=== PATIENT | male | born 1970 | race Caucasian/White ===

== ENCOUNTER 2017-08-26 20:14 | Emergency (ER) | payer OTHER ==
[2017-08-26] MEDS ORDERED: cephALEXin 250 MG CAPSULE PO STA (21:56)
--- NOTE | 2017-08-26 23:09 | Ultrasound Preliminary Report ---
Exam: US DUPLEX EXT VEINS LEFT IMPRESSION: 1. No superficial or deep venous thrombosis. 2. Nonvisualized peroneal vein. Several visualized posterior tibial vein. 3. Soft tissue edema in the left leg. The lateral left knee soft tissues, there is a fluid collection measuring 2.5 x 4.4 x 0.6 cm. No hyperemia noted. Differential includes a seroma, bursitis or absces s. Correlate clinically. Given the ultrasound appearance and absence of hyperemia, fever a seroma or a bursitis. [facility] SITE ID: [id number]
--- NOTE | 2017-08-26 23:11 | ED Physician Documentation ---
PD HPI LOWER EXT INJURY - Stated complaint Stated Complaint: LT LEG EDEMA - Chief complaint Chief Complaint: Ext Problem - History obtained from History obtained from: Patient - History of Present Illness PD HPI LOW EXT INJURY LOCATION: Left, Lower leg Type of injury: Other (Swelling and redness. No traumatic injury.) Timing - onset: How many days ago (5) Timing - duration: Days (5) Timing - details: Still present Associated symptoms: Swelling, Discolored Similar symptoms before: Diagnosis (History of similar episode 3 or 4 years ago that was treated for cellulitis.) - Additional information Additional information: The patient is a 47-year-old diabetic male who presents with redness and swelling of his left lower leg. He first noticed it about 5 days ago after wearing socks that were constricting. He presents now because the redness and swelling has persisted for the past 5 days. He denies fever, cough, or shortness of breath. He reports history of similar episode 3 or 4 years ago which improved after treatment with antibiotics. Review of Systems Constitutional: denies: Fever Nose: denies: Congestion Throat: denies: Sore throat Cardiac: denies: Chest pain / pressure Respiratory: denies: Dyspnea, Cough GI: denies: Abdominal Pain, Nausea, Vomiting : denies: Dysuria Skin: denies: Rash Musculoskeletal: reports: Extremity swelling Neurologic: denies: Headache PD PAST MEDICAL HISTORY - Past Medical History Past Medical History: Yes Cardiovascular: Hypertension Endocrine/Autoimmune: Type 2 diabetes - Past Surgical History Past Surgical History: Yes - Present Medications Home Medications: Ambulatory Orders Medication Instructions Recorded Confirmed Citalopram [CeleXA] 10 mg PO DAILY 08/26/17 Lorazepam [Ativan] 1 mg PO Q6HR PRN 08/26/17 cephALEXin [Cephalexin] 500 mg PO QID #40 tablet 08/26/17 hydroCHLOROthiazide 25 mg PO DAILY 08/26/17 [Hydrochlorothiazide] metFORMIN [Glucophage] 500 mg PO DAILY 08/26/17 - Allergies Allergies/Adverse Reactions: Allergies Allergy/AdvReac Type Severity Reaction Status Date / Time No Known Drug Allergies Allergy Verified 08/26/17 20:26 - Social History Does the pt smoke?: No Smoking Status: Never smoker Does the pt drink ETOH?: No Does the pt have substance abuse?: No - Immunizations Immunizations are current?: No Immunizations: TDAP >10years/unknown, Other immun current PD ED PE NORMAL - Vitals Vital signs reviewed: Yes (hypertensive) - General General: Alert and oriented X 3, Well developed/nourished, Other (obese) - HEENT HEENT: Atraumatic, Moist mucous membranes - Cardiac Cardiac: RRR - Respiratory Respiratory: No respiratory distress, Clear bilaterally - Abdomen Abdomen: Soft, Non tender - Derm Derm: No rash - Extremities Extremities: Other (There is swelling and erythema of the left lower leg from the mid calf to the ankle. There is associated tenderness to palpation at the posterior aspect. There is no open wound. No lymphangitic streaking. Distal neurovascular is intact.) - Neuro Neuro: Alert and oriented X 3, No motor deficit, No sensory deficit Results - Vitals Vitals: Vital Signs - 24 hr 08/26/17 08/26/17 08/26/17 20:23 21:41 23:27 Temperature 36.7 C 36.9 C 36.7 C Heart Rate 86 78 70 Respiratory 18 18 20 Rate Blood Pressure 191/88 H 161/113 H 162/87 H O2 Saturation 97 96 95 Oxygen O2 Source Room air - Rads (name of study) U/S Left LE Radiology: Prelim report reviewed, EMP read indepedently, EMP read contemporaneously (No DVT.) PD MEDICAL DECISION MAKING - ED course Complexity details: reviewed results, re-evaluated patient, considered differential, d/w patient, d/w family ED course: The patient's presentation is significant for cellulitis of the left calf. There is no evidence of DVT on ultrasound examination. Treatment in the emergency department included administration of cephalexin 500 mg orally. He is being discharged with prescription for cephalexin. I discussed with him and his antibiotic treatment, outpatient follow-up, as well as potentially worrisome signs or symptoms that should prompt reevaluation in the emergency department. Departure - Departure Disposition: 01 Home, Self Care Clinical Impression: Cellulitis Qualifiers: Site of cellulitis: extremity Site of cellulitis of extremity: lower extremity Laterality: left Qualified Code(s): L03.116 - Cellulitis of left lower limb Clinical Impression: (Ruled Out): Deep vein thrombosis Condition: Stable Instructions: ED Infec Skin Cellulitis Prescriptions: cephALEXin [Cephalexin] 500 mg PO QID #40 tablet Comments: Keep your left leg elevated as much the time as possible. Take cephalexin 4 times daily as prescribed. Follow up with primary physician within 2 weeks. Call to schedule appointment. Return to the emergency department if you develop increasing redness, swelling, pain, or otherwise worsening symptoms. Discharge Date/Time: 08/26/17 23:28
[2017-08-26 23:28] VITALS: BP 162/87
--- NOTE | 2017-08-26 23:32 | Ultrasound Report ---
EXAM: LEFT LOWER EXTREMITY VENOUS ULTRASOUND EXAM DATE: 08/26/2017 10:48 PM. CLINICAL HISTORY: Edema left lower leg. COMPARISON: None. TECHNIQUE: Real-time sonographic vascular imaging was performed by the systems program manager through the lower extremity utilizing both color-flow and Doppler spectral analysis. Multiple brand representative static diann ges were saved for review. FINDINGS: Common Femoral Vein (CFV): Normal. CFV-GSV Junction: Normal. Profunda Femoral Vein (PFV): Normal. Femoral Vein (FV) Prox: Normal. Femoral Vein (FV) Mid: Normal. Femoral Vein (FV) Dist: Normal. Popliteal Vein: Normal. Posterior Tibial Veins: Not well-seen. No thrombosis. Peroneal Veins: Not seen. Contralateral Right CFV: Normal. Other: Soft tissue edema is noted in the left leg. In the lateral left knee region, there is a fluid collection measuring 2.5 x 4.4 x 0.6 cm. No vascula rity is noted in the collection. IMPRESSION: 1. No superficial or deep venous thrombosis. 2. Nonvisualized peroneal vein. Suboptimally visualized posterior tibial vein. 3. Soft tissue edema in the left leg. In the lateral left knee soft tissues, there is a fluid collect ion measuring 2.5 x 4.4 x 0.6 cm. No hyperemia noted. Differential includes a seroma, bursitis or abs cess. Correlate clinically. Given the ultrasound appearance and absence of hyperemia, favor a seroma or a bursitis. [facility] Referring Provider Line: [phone] SITE ID: [id number]
== END 2017-08-26 23:28 | disposition home or self-care (01) ==
LOC: ED 20:14
DX: L03.116 Cellulitis of left lower limb (principal); I10 Essential (primary) hypertension; E11.9 Type 2 diabetes mellitus without complications; Z79.84 Long term (current) use of oral hypoglycemic drugs
CPT/HCPCS: 93971; 99283; A9270

== ENCOUNTER 2018-03-25 03:18 | Emergency (ER) | payer OTHER ==
--- NOTE | 2018-03-25 03:52 | ED Physician Documentation ---
History of Present Illness - Stated complaint Stated Complaint: ANXIETY,SOA - Chief complaint Chief Complaint: Resp - Additonal information Additional information: hx from pt 47 male hx HTN DM no known CAD non smoker stressful job no recent travel no leg swelling to ED after he awoke at 0150 with all over body tightness and SOA no CP lasted about an hr seemed worse when eyes closed but not necessarily due to being supine resolved spont similar milder sx last 2 nights as well but OK during the day no recent new fever cough NVD has a chronic cough he believes 2/2 his BP med sx resolved at this time Review of Systems Constitutional: denies: Fever Cardiac: denies: Chest pain / pressure Respiratory: reports: Dyspnea. denies: Cough GI: denies: Abdominal Pain, Nausea, Vomiting Musculoskeletal: denies: Extremity pain, Extremity swelling, Joint swelling Neurologic: denies: Generalized weakness PD PAST MEDICAL HISTORY - Past Medical History Past Medical History: Yes Cardiovascular: Hypertension Respiratory: Asthma Endocrine/Autoimmune: Type 2 diabetes Psych: Anxiety - Past Surgical History Past Surgical History: Yes - Present Medications Home Medications: Ambulatory Orders Medication Instructions Recorded Confirmed Citalopram [CeleXA] 10 mg PO DAILY 08/26/17 03/25/18 metFORMIN [Glucophage] 500 mg PO DAILY 08/26/17 03/25/18 Lisinopril/Hydrochlorothiazide 1 tab PO DAILY 03/25/18 03/25/18 [Lisinopril-Hctz 10-12.5 mg Tab] - Allergies Allergies/Adverse Reactions: Allergies Allergy/AdvReac Type Severity Reaction Status Date / Time No Known Drug Allergies Allergy Verified 03/25/18 03:35 - Social History Does the pt smoke?: No Smoking Status: Never smoker Does the pt drink ETOH?: No Does the pt have substance abuse?: No - Immunizations Immunizations are current?: No Immunizations: TDAP >10years/unknown, Other immun current - POLST Patient has POLST: No PD ED PE NORMAL - Vitals Vital signs reviewed: Yes - General General: Alert and oriented X 3 - HEENT HEENT: Atraumatic - Cardiac Cardiac: RRR, No murmur - Respiratory Respiratory: No respiratory distress, Clear bilaterally - Abdomen Abdomen: Soft, Non tender - Extremities Extremities: No edema, No calf tenderness / cord - Neuro Neuro: Alert and oriented X 3 Results - Vitals Vitals: Vital Signs - 24 hr 03/25/18 03/25/18 03/25/18 03:26 03:56 03:58 Temperature 36.2 C L Heart Rate 71 71 35 L Respiratory 12 14 10 L Rate Blood Pressure 189/103 H 170/103 H 115/76 O2 Saturation 98 100 99 03/25/18 03/25/18 04:01 05:02 Temperature Heart Rate 69 71 Respiratory 12 17 Rate Blood Pressure 131/80 H 151/79 H O2 Saturation 99 98 Oxygen O2 Source Room air - EKG (time done) 0330 Rate: Rate (enter#) (70) Rhythm: NSR [place]: Normal Intervals: Normal ME QRS: Normal Ischemia: Normal ST segments - Labs Labs: Laboratory Tests 03/25/18 03/25/18 03/25/18 03:55 03:55 03:55 WBC 6.7 RBC 5.07 Hgb 14.3 Hct 41.9 L MCV 82.6 MCH 28.2 MCHC 34.2 RDW 12.8 Plt Count 219 MPV 7.9 Neut # (Auto) 3.4 Lymph # (Auto) 2.6 [place] # (Auto) 0.5 Eos # (Auto) 0.1 Baso # (Auto) 0.0 Absolute Nucleated RBC 0.00 Nucleated RBC % 0.0 Sodium 132 L Potassium 3.7 Chloride 98 L Carbon Dioxide 22 Anion Gap 12.0 BUN 18 Creatinine 0.9 Estimated GFR (MDRD) 90 Glucose 320 H Calcium 8.9 Troponin I < 0.04 B-Natriuretic Peptide 03/25/18 03:55 WBC RBC Hgb Hct MCV MCH MCHC RDW Plt Count MPV Neut # (Auto) Lymph # (Auto) [place] # (Auto) Eos # (Auto) Baso # (Auto) Absolute Nucleated RBC Nucleated RBC % Sodium Potassium Chloride Carbon Dioxide Anion Gap BUN Creatinine Estimated GFR (MDRD) Glucose Calcium Troponin I B-Natriuretic Peptide 5 PD MEDICAL DECISION MAKING - ED course ED course: PERC neg EKG s ischemia trop # 1 neg CXR NACPD sx have resolved sx were atypical - no chest pressure etc - will check 4 hr trop and dc if neg but pt states he is feelign better, he is fairly certain sx were due to changing the timing of his meds, he understands a 4 hr trop would inc accuracy but he is reassured by results so far and wishes to go home, he has outpt cardio appt already pending Departure - Departure Disposition: 01 Home, Self Care Clinical Impression: Dyspnea Qualifiers: Dyspnea type: unspecified Qualified Code(s): R06.00 - Dyspnea, unspecified Condition: Good Instructions: ED Dyspnea Shortness of Breath Comments: All of the tests we ran tonight came back fine. You are not anemic The xray was normal - no collapsed lung or fluid in the lungs or congestive heart failure The exam and history did not suggest a blood clot. The blood test for congestive heart failure was negative. The EKG was fine And one round of blood work for a heart attack was negative I suggested we repeat the heart test for higher accuracy but you declined because you are feeling better. Please follow up with your naval marine engineer as planned. Also your blood sugar was elevated - please monitor and follow up with your PMD Return if worse in any way
[2018-03-25 04:04] LABS: BASOPHILS % (AUTO) 0.7 %; EOSINOPHILS # (AUTO) 0.1 10^3/uL (0.0-0.7); HGB - HEMOGLOBIN 14.3 g/dL (14.0-18.0); LYMPHOCYTES # (AUTO) 2.6 10^3/uL (1.5-3.5); LYMPHOCYTES % (AUTO) 38.9 %; MEAN CORPUSCULAR HEMOGLOBIN 28.2 pg (27.0-31.0); MEAN CORPUSCULAR HGB CONC 34.2 g/dL (32.0-36.0); MEAN CORPUSCULAR VOLUME 82.6 fL (80.0-94.0); MEAN PLATELET VOLUME 7.9 fL (7.4-11.4); MONOCYTES # (AUTO) 0.5 10^3/uL (0.0-1.0); MONOCYTES % (AUTO) 7.6 %; NEUTROPHILS # (AUTO) 3.4 10^3/uL (1.5-6.6); NEUTROPHILS % (AUTO) 50.8 %; PLT - PLATELET COUNT 219 10^3/uL (130-450); RED BLOOD COUNT 5.07 10^6/uL (4.70-6.10); RED CELL DISTRIBUTION WIDTH 12.8 % (12.0-15.0); WHITE BLOOD COUNT 6.7 x10^3/uL (4.8-10.8)
[2018-03-25 04:14] LABS: CALCIUM 8.9 mg/dL (8.5-10.3); CREATININE 0.9 mg/dL (0.6-1.2)
--- NOTE | 2018-03-25 04:44 | XRAY Report ---
Reason: soa Procedure Date: 03/25/2018 Accession Number: [id number] / [id number] Procedure: XR - Chest 1 View X-Ray CPT Code: 18051 FULL RESULT: EXAM: CHEST RADIOGRAPHY EXAM DATE: 03/25/2018 04:36 AM. CLINICAL HISTORY: Soa. COMPARISON: None. TECHNIQUE: 1 view. FINDINGS: Lungs/Pleura: No focal opacities evident. No pleural effusion. No pneumothorax. Mediastinum: Within exam limitations, the cardiomediastinal contour is normal. Other: None. IMPRESSION: Normal single view chest. [facility]
[2018-03-25 05:04] VITALS: BP 151/79
== END 2018-03-25 05:05 | disposition home or self-care (01) ==
LOC: ED 03:18
DX: R06.02 Shortness of breath (principal); F41.9 Anxiety disorder, unspecified; J45.909 Unspecified asthma, uncomplicated; I10 Essential (primary) hypertension; E11.9 Type 2 diabetes mellitus without complications; Z79.84 Long term (current) use of oral hypoglycemic drugs
CPT/HCPCS: 36415; 71045; 80048; 83880; 84484; 85025; 93005; 99283; 99284